=== PATIENT | male | born 1990 | race African-American/Black ===

== ENCOUNTER 2019-04-24 20:38 | Emergency (ER) | payer BC, MEDICAID ==
[~2019-04-24] VITALS: Ht 182.9 cm; Wt 158.8 kg
--- NOTE | 2019-04-24 20:50 | NUR ---
ED Nurse Note: pt walked in to ED C/O pain to left elbow pain 2/10 with rash. pt states the rash is itchy. pt is alert x4. VSS.
[2019-04-24 20:51] VITALS: BP 140/87
--- NOTE | 2019-04-24 21:06 | Emergency Room Report ---
History of Present Illness General Chief Complaint: Pain Source: Patient Present Illness HPI 29-year-old male with no significant past medical history here complaining of pruritus in the left forearm and 2 out of 10 pain in left elbow x2 days. Patient denies any fall or injury or heavy lifting. Does not recall being bit by an insect. Denies fever and chills, pain radiation, tingling numbness. Denies anaphylaxis, shortness of breath, chest pain, and other associated symptoms. Left elbow and forearm looks slightly erythematous compared to the right forearm and warm to touch. Patient has not taken medication for symptom relief. Patient is in no distress. Allergies: Uncoded Allergies: PICKLES (Allergy, Unknown, 04/24/19) Patient History Past Medical History: see triage record Past Surgical History: unable to obtain Pertinent Family History: none Immunizations: UTD Reviewed Nursing Documentation: PMH: Agreed; PSxH: Agreed Nursing Documentation-PMH Past Medical History: No Stated History Review of Systems All Other Systems: negative except mentioned in HPI Physical Exam Vital Signs Date Time Temp Pulse Resp B/P (MAP) Pulse Ox O2 Delivery O2 Flow Rate FiO2 04/24/19 20:46 98.6 95 18 145/87 (106) 95 Room Air Sp02 EP Interpretation: reviewed, normal General Appearance: no apparent distress, alert, GCS 15, non-toxic Head: normocephalic, atraumatic Eyes: bilateral eye normal inspection, bilateral eye PERRL ENT: hearing grossly normal, normal pharynx, no angioedema, normal voice Neck: full range of motion, supple/symm/no masses Respiratory: chest non-tender, lungs clear, normal breath sounds, no wheezing, speaking full sentences Cardiovascular #1: regular rate, rhythm, no edema, no murmur Cardiovascular #2: 2+ radial (R), 2+ radial (L) Gastrointestinal: normal bowel sounds, non tender, soft, non-distended, no guarding, no rebound Genitourinary: no CVA tenderness Musculoskeletal: back normal, gait/station normal, normal range of motion, non- tender, other - Edema and erythema of the forearm and elbow Neurologic: alert, oriented x3, responsive, motor strength/tone normal, sensory intact, speech normal Psychiatric: judgement/insight normal, memory normal, mood/affect normal, no suicidal/homicidal ideation Skin: normal color, warm/dry, other - Insect bite noted left forearm Lymphatic: no adenopathy Medical Decision Making PA Attestation Diagnosis and treatment plans were reviewed and discussed with my supervising physician Dr. Washington Diagnostic Impression: Primary Impression: Cellulitis Additional Impression: Insect bite ER Course 29-year-old male with no significant past medical history here complaining of pruritus in the left forearm and 2 out of 10 pain in left elbow x2 days. Patient denies any fall or injury or heavy lifting. Does not recall being bit by an insect. Denies fever and chills, pain radiation, tingling numbness. Denies anaphylaxis, shortness of breath, chest pain, and other associated symptoms. Left elbow and forearm looks slightly erythematous compared to the right forearm and warm to touch. Patient has not taken medication for symptom relief. Patient is in no distress. Ddx considered but are not limited to : Cellulitis, insect bite, superficial infection, abscess Vital signs: are WNL, pt. is afebrile H&PE are most consistent with: Cellulitis secondary to insect bite ORDERS: Augmentin, prednisone, hydrocortisone cream ED INTERVENTIONS: None required at this time. No x-ray or further imaging needed at this time as patient did not have direct injuries to the affected area DISCHARGE: At this time pt. is stable for d/c to home. Will provide printed patient care instructions, and any necessary prescriptions. Care plan and follow up instructions have been discussed with the patient prior to discharge. Advised patient take medication as directed follow-up with primary care provider worsening symptoms or anaphylaxis return to the emergency room. Last Vital Signs Date Time Temp Pulse Resp B/P (MAP) Pulse Ox O2 Delivery O2 Flow Rate FiO2 04/24/19 20:51 98.6 84 18 140/87 96 Room Air Disposition: HOME, SELF-CARE Condition: Stable Scripts Hydrocortisone Acetate/Aloe V (Hydrocortisone-Aloe 0.5% Cream) 28.4 Gm Cream..g. 1 GM TP TID, #28 GM Prov: Leah Rome 04/24/19 Prednisone* (PREDNISONE*) 10 Mg Tablet 10 MG ORAL BID for 5 Days, #10 TAB 0 Refills Prov: Leah Rome 04/24/19 Amoxicillin/Potassium Clav 875-125* (AUGMENTIN 875-125 TABLET*) 1 Each Tablet 1 TAB ORAL TWICE A DAY for 10 Days, #20 TAB Prov: Leah Rome 04/24/19 Patient Instructions: Cellulitis, [id number] Leah Rome Apr 24, 2019 21:06
[2019-04-24] MEDS ORDERED: PREDNISONE10 MG ORAL (21:10)
[2019-04-24] MEDS ORDERED: AUGMENTIN 875-1 EAC1 ORAL (21:10)
[2019-04-24] MEDS ORDERED: HYDROCORTISON28.4 G4 TP (21:10)
[2019-04-24 21:13] VITALS: BP 138/87
--- NOTE | 2019-04-24 21:13 | NUR ---
ER DISCHARGE NOTE: Patient is cleared to be discharged per ERMD, pt is aox4, on room air, with stable vital signs. pt was given dc and prescription instructions, pt was able to verbalize understanding, pt id band removed without complications. pt is able to ambulate with steady gait. pt took all belongings.
== END 2019-04-24 21:13 | disposition home or self-care (01) ==
LOC: EMR 21:06
DX: S40.862A Insect bite (nonvenomous) of left upper arm, initial encounter (principal); L03.114 Cellulitis of left upper limb; Z91.018 Allergy to other foods; W57.XXXA Bitten or stung by nonvenomous insect and other nonvenomous arthropods, initial encounter; Y93.9 Activity, unspecified; Y92.9 Unspecified place or not applicable
CPT/HCPCS: 99282

== ENCOUNTER 2019-04-27 20:33 | Emergency (ER) | payer BC ==
[~2019-04-27] VITALS: Ht 182.9 cm; Wt 161.5 kg
[~2019-04-27 20:33] MED LIST: AUGMENTIN 875-1 EAC1 ORAL; HYDROCORTISON28.4 G4 TP; PREDNISONE10 MG ORAL
[2019-04-27 20:40] VITALS: BP 133/84
--- NOTE | 2019-04-27 20:40 | NUR ---
ED Nurse Note: PT WALKED IN FOR MEDICAL CLEARANCE TO GO BACK TO WORK.
--- NOTE | 2019-04-27 20:40 | NUR ---
ER DISCHARGE NOTE: Patient is cleared to be discharged per ERMD, pt is aox4, on room air, with stable vital signs. pt was given dc instructions, pt was able to verbalize understanding, pt id bandremoved. pt is able to ambulate with steady gait. pt took all belongings.
--- NOTE | 2019-04-27 20:48 | Emergency Room Report ---
History of Present Illness General Chief Complaint: General Complaint Source: Patient Present Illness [facility] Disclaimer: Please note that this report is being documented using DRAGON technology. This can lead to erroneous entry secondary to incorrect interpretation by the dictating instrument. HPI: Is a 29-year-old male seen in the emergency department earlier this week for left upper extremity cellulitis presenting to the ED today requesting a note to return to full activities. He was seen in the emergency department on with redness and swelling of the left forearm tracking up to the elbow and some pain. He was discharged on amoxicillin, hydrocortisone, prednisone to treat a suspected cellulitis versus allergic reaction. Patient states that his symptoms are now completely resolved. He denies any numbness, tingling, weakness, pain, redness, fevers or any other change from his baseline health. He continues to take his medications as prescribed. He is requesting a note to return to full activities at work tomorrow. 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 He has no other complaints at this time he denies any fevers, chills, chest pain, shortness of breath, cough, abdominal pain or other symptoms at this time. PMH: Denies PSH: Unspecified throat surgery years ago, cannot recall exact details Allergies: No allergies to medications Social Hx: Former smoker, social alcohol use, denies drug use Allergies: Uncoded Allergies: PICKLES (Allergy, Unknown, 04/24/19) Nursing Documentation-PMH Past Medical History: No Stated History Review of Systems All Other Systems: negative except mentioned in HPI Physical Exam Vital Signs Date Time Temp Pulse Resp B/P (MAP) Pulse Ox O2 Delivery O2 Flow Rate FiO2 04/27/19 20:35 98.1 88 18 133/84 (100) 95 Room Air General: Awake and alert, no acute distress HEENT: NC/AT. EOMI. Resp: Normal work of breathing. Skin: Intact. No abrasions, laceration or rash over the exposed skin. No edema , no erythema, no skin breakdown or rash appreciated over the upper extremities. MSK: Normal tone and bulk. Moving all extremities. No obvious deformity. No tenderness over the upper extremities. There is full range of motion with flexion, extension, pronation and supination at the elbows. Heel pulses are 2+ bilaterally. Good capillary refill. Full flexion, extension of all digits as well as the wrist. Neuro: Awake and alert. Mentating appropriately. Sensation is intact over the dermatomes of the upper extremities bilaterally. Medical Decision Making Diagnostic Impression: Primary Impression: Follow up ER Course 29-year-old male presents for evaluation of a now resolved left upper extremity rash and requesting a note to return to full activities tomorrow. The patient' s symptoms from 04/24 appear to be resolved. He will continue to take his medications as prescribed and follow-up with his PMD. We will provide a note to return to full activities as tolerated. He was instructed to return to the emergency department any new or worsening symptoms and to continue his medications as prescribed. He understands and agrees with this treatment plan was discharged home. Last Vital Signs Date Time Temp Pulse Resp B/P (MAP) Pulse Ox O2 Delivery O2 Flow Rate FiO2 04/27/19 20:35 98.1 88 18 133/84 (100) 95 Room Air Disposition: HOME, SELF-CARE Condition: Stable Referrals: [facility] Departure Forms: Return to Work Return to Work Date: Apr 28, 2019 Work Restrictions: None Return to Full Activity: Apr 28, 2019 Additional Instructions: Continue current medication regimen as prescribed. You may return to full duties without limitation. Follow-up with your PMD as instructed. Return to the ER with any new or worsening symptoms Luther Miller MD Apr 27, 2019 20:48
[2019-04-27 20:51] VITALS: BP 131/80
== END 2019-04-27 20:51 | disposition home or self-care (01) ==
LOC: EMR 20:43
DX: R21 Rash and other nonspecific skin eruption (principal); Z91.018 Allergy to other foods
CPT/HCPCS: 99281

== ENCOUNTER 2019-07-25 11:31 | Emergency (ER) | payer BC ==
[~2019-07-25] VITALS: Ht 185.4 cm; Wt 158.8 kg
[2019-07-25] MEDS ORDERED: NKM (11:51)
--- NOTE | 2019-07-25 11:55 | NUR ---
ED Nurse Note: Pt aaox4, vss with no acute distress. c/o right knee injury at work yesterday; patient states 'kind hyperextended it while moving material, hearing cracks. Pt with .
--- NOTE | 2019-07-25 13:09 | NUR ---
ED Nurse Note: Pt back from x-ray
[2019-07-25] MEDS ORDERED: IBUPROFEN600 MG ORAL (13:12)
[2019-07-25 13:32] VITALS: BP 164/83
--- NOTE | 2019-07-25 14:02 | NUR ---
ER DISCHARGE NOTE: Patient is cleared to be discharged per ERMD, pt is aox4, on room air, with stable vital signs. pt was given dc and prescription instructions, pt was able to verbalize understanding, pt id band removed without complications. pt is able to ambulate with steady gait. pt took all belongings. Pt left ED with crutches and kathie wrape for his knee. Pt ambuated with no issues.
--- NOTE | 2019-07-25 14:04 | Emergency Room Report ---
History of Present Illness General Chief Complaint: Lower Extremity Injury Source: Patient Present Illness HPI Patient presents with complaints of discomfort to the right knee Patient reports that he injured it earlier in a hyperextension type manner Also now feels some discomfort in the lateral aspect of the knee Pain is worse with bearing weight denies any pelvic pain denies any discomfort to the calf or ankle area Allergies: Uncoded Allergies: PICKLES (Allergy, Unknown, 04/24/19) Patient History Past Medical History: see triage record Reviewed Nursing Documentation: PMH: Agreed; PSxH: Agreed Nursing Documentation-PMH Past Medical History: No Stated History Review of Systems All Other Systems: negative except mentioned in HPI Physical Exam Vital Signs Date Time Temp Pulse Resp B/P (MAP) Pulse Ox O2 Delivery O2 Flow Rate FiO2 07/25/19 11:47 98.4 92 16 157/82 (107) 96 Room Air Sp02 EP Interpretation: reviewed, normal General Appearance: well appearing, no apparent distress Head: normocephalic, atraumatic Eyes: bilateral eye PERRL, bilateral eye EOMI ENT: EOM grossly intact Neck: supple Respiratory: lungs clear, no retraction, no accessory muscle use Musculoskeletal: other - Patient ambulatory, anterior and posterior drawer are negative however patient has discomfort on palpation of the lateral distal right femur Neurologic: alert, oriented, oriented x3 Skin: no rash Lymphatic: no adenopathy Procedures Splinting Splinting : Consent: Verbal Location: Right knee Pre-Made Type: knee immobilizer Pre-Proc Neuro Vasc Exam: normal Post-Proc Neuro Vasc Exam: normal Patient Tolerated: Well Complications: None Medical Decision Making Diagnostic Impression: Primary Impression: knee sprain Additional Impression: possible ligamental injury ER Course Given the patient's history and presentation initial x-ray imaging is obtained These are negative given the clinical exam and the description of the injury There is a likely ligamental injury Patient has a splint applied and will require outpatient MRI as needed Other X-Ray Diagnostic Results Other X-Ray Diagnostic Results : X-Ray ordered: Right knee # of Views/Limited Vs Complete: 4 View Indication: Pain EP Interpretation: Yes Interpretation: no dislocation, no soft tissue swelling, no fractures Impression: No acute disease Electronically Signed by: Susan Sutton DO Last Vital Signs Date Time Temp Pulse Resp B/P (MAP) Pulse Ox O2 Delivery O2 Flow Rate FiO2 07/25/19 11:47 98.4 92 16 157/82 (749) 96 Room Air Status: improved Disposition: HOME, SELF-CARE Condition: Improved Scripts Ibuprofen* (MOTRIN*) 600 Mg Tablet 600 MG ORAL Q8H PRN for For Pain, #20 TAB 0 Refills Prov: Susan Sutton DO 07/25/19 Referrals: NOT CHOSEN IPA/MD,REFERRING (PCP) [facility] Open 24 hour /7 days a week by Appointment Only [address] [facility] [address] [facility] [id number] Departure Forms: Return to Work Return to Work in (Days): 2 Return to Work Date: Jul 27, 2019 Other Restrictions: None Patient Instructions: Knee Sprain, [id number], Knee Pain, [id number] Additional Instructions: X-ray imaging today does not reveal any obvious fracture. The type of injury you sustained can lead to ligamental injury however. And if discomfort persists further outpatient MRI can be required to obtain further answers Patient is provided with the discharge instructions notified to follow up with primary doctor in the next 2-3 days otherwise return to the er with any worsening symptoms. Please note that this report is being documented using Meeps technology. This can lead to erroneous entry secondary to incorrect interpretation by the dictating instrument. Susan Sutton DO Jul 25, 2019 14:04
--- NOTE | 2019-07-25 14:04 | Diagnostic Imaging Report ---
Indications: Trauma, pain Technique: Three views of the right knee Comparison: None Findings: No acute fractures. No dislocations. Joint spaces are preserved. No radiopaque foreign body. Normal mineralization. Impression: No acute process
== END 2019-07-25 13:32 | disposition home or self-care (01) ==
LOC: EMR 12:40
DX: S83.91XA Sprain of unspecified site of right knee, initial encounter (principal); X58.XXXA Exposure to other specified factors, initial encounter; Y92.9 Unspecified place or not applicable; Z88.8 Allergy status to other drugs, medicaments and biological substances
CPT/HCPCS: 99283

== ENCOUNTER 2019-11-02 21:31 | Emergency (ER) | payer BC, MEDICAID ==
[~2019-11-02] VITALS: Ht 185.4 cm; Wt 172.4 kg
[~2019-11-02 21:31] MED LIST changes: +IBUPROFEN600 MG ORAL; +NKM
[2019-11-02 21:46] VITALS: BP 123/79
--- NOTE | 2019-11-02 21:46 | NUR ---
ED Nurse Note: Pt ambulated into ED from home CO lower abdominal that radiates to lower back, burning during urination, urgency, frequency, dribbling, fever, nausea. Pt denies taking temperature at home, penile discharge, blood in urine. Pt states that symptoms began last night at home while pt was in bed. Ua sent to lab. Awaiting ERMD at bedside. VSS, no s/s of distress noted.
--- NOTE | 2019-11-02 22:25 | Emergency Room Report ---
History of Present Illness General Chief Complaint: Back Pain-No Injury Source: Patient Present Illness HPI Is a 29-year-old male with no past medical history who presents with chief complaint of urinary frequency urgency for the last 2 to 3 days. Subjective fever and chills and lower back pain. No discharge. No hematuria. No history of STDs. He is sexually active with one partner. No protection however. Allergies: Uncoded Allergies: PICKLES (Allergy, Unknown, 04/24/19) Patient History Past Medical History: see triage record, old chart reviewed Past Surgical History: none Pertinent Family History: none Social History: Denies: smoking Immunizations: other Reviewed Nursing Documentation: PMH: Agreed; PSxH: Agreed Nursing Documentation-PMH Past Medical History: No Stated History Review of Systems Eye: Denies: eye pain, blurred vision ENT: Denies: ear pain, nose congestion, throat swelling Respiratory: Denies: cough, shortness of breath Cardiovascular: Denies: chest pain, palpitations Gastrointestinal: Denies: abdominal pain, diarrhea, nausea, vomiting Genitourinary: Reports: dysuria, frequency, urgency Musculoskeletal: Denies: back pain, joint pain Skin: Denies: rash Neurological: Denies: headache, numbness Endocrine: Denies: increased thirst, increased urine Hematologic/Lymphatic: Denies: easy bruising All Other Systems: negative except mentioned in HPI Physical Exam Vital Signs Date Time Temp Pulse Resp B/P (MAP) Pulse Ox O2 Delivery O2 Flow Rate FiO2 11/02/19 21:36 99.1 108 16 123/79 (94) 95 Room Air Vitals normal Sp02 EP Interpretation: reviewed, normal General Appearance: well appearing, no apparent distress, alert, obese Head: normocephalic, atraumatic Eyes: bilateral eye PERRL, bilateral eye EOMI ENT: hearing grossly normal, normal pharynx Neck: full range of motion, supple, no meningismus Respiratory: chest non-tender, lungs clear, normal breath sounds Cardiovascular #1: regular rate, rhythm, no murmur Gastrointestinal: normal bowel sounds, non tender, no mass, no organomegaly, no bruit, non-distended Genitourinary: other - Patient is uncircumcised. No testicular tenderness. No discharge. Musculoskeletal: back normal, normal range of motion, gait/station normal Psychiatric: mood/affect normal Medical Decision Making Diagnostic Impression: Primary Impression: UTI (urinary tract infection) Qualified Codes: N30.00 - Acute cystitis without hematuria ER Course This patient presents with urinary tract symptoms. No evidence of pyelonephritis. No evidence of any sepsis. Will discharge home. Last Vital Signs Date Time Temp Pulse Resp B/P (MAP) Pulse Ox O2 Delivery O2 Flow Rate FiO2 11/02/19 21:46 99.1 108 16 123/79 95 Room Air Status: improved Disposition: HOME, SELF-CARE Condition: Stable Scripts Cephalexin* (KEFLEX*) 500 Mg Capsule 500 MG ORAL TID, #21 CAP Prov: Vic Corea MD 11/02/19 Referrals: NOT CHOSEN IPA/,REFERRING (PCP) Additional Instructions: Follow-up with your doctor in 7 days. If you start having fever, worsening symptoms, nausea vomiting, upper back pain, return sooner. Vic Corea MD Nov 02, 2019 22:25
--- NOTE | 2019-11-02 22:30 | NUR ---
ED Nurse Note: ERMD at bedside
[2019-11-02 22:31] LABS: BILIRUBIN, URINE NEGATIVE (NEGATIVE); COLOR,URINE PALE YELLOW; GLUCOSE, URINE (UA) NEGATIVE (NEGATIVE); KETONES,URINE NEGATIVE (NEGATIVE); LEUKOCYTE ESTERASE ,URINE 2+ (NEGATIVE); NITRITE,URINE NEGATIVE (NEGATIVE); PH,URINE 6.5 (4.5-8.0); PROTEIN,URINE NEGATIVE (NEGATIVE); UROBILINOGEN,URINE NORMAL MG/DL (0.0-1.0)
[2019-11-02 22:32] LABS: APPEARANCE,URINE SLIGHTLY CLOUDY
--- NOTE | 2019-11-02 22:43 | NUR ---
ED Nurse Note: All medications administered; pt tolerated well no s/s of distress noted. no adverse reactions noted.
[2019-11-02] MEDS ORDERED: Cephalexin 500mg cap ORAL ONE (22:45)
[2019-11-02] MEDS ORDERED: CEPHALEXIN500 MG ORAL (22:58)
[2019-11-02 23:00] VITALS: BP 123/75
[2019-11-02 23:02] VITALS: BP 123/75
--- NOTE | 2019-11-02 23:02 | NUR ---
ER DISCHARGE NOTE: Patient is cleared to be discharged home per ERMD, pt is aox4, on room air, with stable vital signs. pt was given dc and prescription instructions, pt was able to verbalize understanding, pt id band removed. pt is able to ambulate with steady gait. pt took all belongings.
== END 2019-11-02 23:02 | disposition home or self-care (01) ==
LOC: EMR 22:00
DX: N30.00 Acute cystitis without hematuria (principal); Z91.018 Allergy to other foods
CPT/HCPCS: 81003; 87086; Z7502; 99283

== ENCOUNTER 2019-12-31 21:19 | Emergency (ER) | payer MEDICAID ==
[~2019-12-31] VITALS: Ht 185.4 cm; Wt 170.1 kg
[~2019-12-31 21:19] MED LIST changes: +CEPHALEXIN500 MG ORAL
[2019-12-31 21:27] VITALS: BP 120/80
--- NOTE | 2019-12-31 21:27 | NUR ---
ED Nurse Note: Pt walked into ED from home for c/o R middle finger pain s/p work injury. Pt states he smashed the finger in between the wall at work. No bleeding or obvious deformity, but mild swelling noted. Pt is aaox4, no cardiac or respiratory distress noted.
[2019-12-31] MEDS: Acetaminophen 500mg (ES) tab ORAL ONE ×2 (21:35→21:39)
[2019-12-31] MEDS ORDERED: IBUPROFEN600 M1 ORAL (21:40)
--- NOTE | 2019-12-31 21:41 | Emergency Room Report ---
History of Present Illness General Chief Complaint: Upper Extremity Injury Source: Patient Present Illness HPI 29-year-old male presents with right middle finger pain, hurts with movement alleviated with rest started earlier today when his middle finger was caught between drywall and a stud he denies any numbness or tingling he endorses some pain he thinks he broke his finger Allergies: Uncoded Allergies: PICKLES (Allergy, Unknown, 04/24/19) COVID-19 Screening Contact w/high risk pt: No Recent Travel to affected area: No Experienced COVID-19 symptoms?: No Patient History Past Medical History: see triage record Reviewed Nursing Documentation: PMH: Agreed; PSxH: Agreed Nursing Documentation-PMH Past Medical History: No Stated History Review of Systems All Other Systems: negative except mentioned in HPI Physical Exam Vital Signs Date Time Temp Pulse Resp B/P (MAP) Pulse Ox O2 Delivery O2 Flow Rate FiO2 12/31/19 21:22 98.4 110 18 120/80 (93) 93 Room Air General Appearance: well appearing, no apparent distress Head: normocephalic, atraumatic ENT: hearing grossly normal, normal voice Neck: full range of motion, supple Respiratory: no respiratory distress, speaking full sentences Musculoskeletal: other - Right upper extremity: 2+ radial pulse, tenderness to palpation above the PIP of the right middle finger no obvious swelling no obvious deformity Neurologic: alert, normal gait Psychiatric: mood/affect normal Skin: no rash Procedures Splinting Splinting : Consent: Verbal Location: Right middle finger Hand-Made Type: Finger splint Splint: Finger splint Pre-Proc Neuro Vasc Exam: normal Post-Proc Neuro Vasc Exam: normal Patient Tolerated: Well Complications: None Medical Decision Making Diagnostic Impression: Primary Impression: Finger fracture, right Qualified Codes: S62.652A - Nondisplaced fracture of middle phalanx of right middle finger, initial encounter for closed fracture ER Course 29-year-old male presents with possible right middle finger fracture, we will splint it, x-ray is equivocal fracture is missed on multiple views however can be potentially seen on the AP view will provide patient with a splint disposition home with return precautions patient will follow-up with orthopedics Other X-Ray Diagnostic Results Other X-Ray Diagnostic Results : X-Ray ordered: Right hand # of Views/Limited Vs Complete: 3 View Indication: Pain EP Interpretation: Yes Interpretation: other - Possible right middle finger fracture possible break in cortex not seen in other views only seen best in the AP view Impression: Other - Possible right middle finger fracture Electronically Signed by: Kenneth Washington MD Last Vital Signs Date Time Temp Pulse Resp B/P (MAP) Pulse Ox O2 Delivery O2 Flow Rate FiO2 12/31/19 21:27 98.4 110 18 120/80 93 Room Air Disposition: HOME, SELF-CARE Condition: Stable Scripts Ibuprofen* (MOTRIN*) 600 Mg Tablet 600 MG ORAL Q8H PRN for FOR PAIN, #20 TAB 0 Refills Prov: Kenneth Washington MD 12/31/19 Referrals: [facility] Patient Instructions: Finger Fracture, [id number], Finger Sprain, Easy-to- Read Additional Instructions: The patient was provided with discharge instructions, notified to follow-up with a primary care doctor and or specialist in the next 24-48 hours, and to return to the ED if they have worsening of their symptoms. Please note that this report is being documented using Engagor technology. This can lead to erroneous entry secondary to incorrect interpretation by the dictating instrument. Kenneth Washington MD Dec 31, 2019 21:41
[2019-12-31 21:50] VITALS: BP 122/87
--- NOTE | 2019-12-31 21:50 | NUR ---
ER DISCHARGE NOTE: Patient is cleared to be discharged per ERMD, pt is aox4, on room air, with stable vital signs. pt was given dc and prescription instructions, pt was able to verbalize understanding, pt id band removed. pt is able to ambulate with steady gait. pt took all belongings.
--- NOTE | 2020-01-01 10:21 | Diagnostic Imaging Report ---
Indication: Middle finger pain Technique: 3 views right hand Comparison: none Findings: On the lateral view, there is a small lucency in the posterior corner the base of the distal phalanx, not appreciated on other views. There is also suggestion of a fracture line of the lateral base of the distal phalanx on the oblique view. There is some overlying soft tissue swelling. There are mild degenerative proliferative changes of the third distal interphalangeal joint. No other evidence of acute fracture or dislocation. No radiopaque foreign body. The joint spaces are preserved. Impression: Suspect nondisplaced corner fracture of the there are distal phalanx. This agrees with the preliminary interpretation reported by the emergency room physician in the electronic medical record
== END 2019-12-31 21:50 | disposition home or self-care (01) ==
LOC: EMR 21:30
DX: S62.652A Nondisplaced fracture of middle phalanx of right middle finger, initial encounter for closed fracture (principal); W23.0XXA Caught, crushed, jammed, or pinched between moving objects, initial encounter; Y92.9 Unspecified place or not applicable; Z91.018 Allergy to other foods
CPT/HCPCS: 29130; 73130; Z7502; 99283